=== PATIENT | male | born 1955 | race Caucasian/White ===

== ENCOUNTER 2022-09-19 17:32 | Observation (INO) | payer OTHER, BC ==
[2022-09-19] MEDS ORDERED: LORazepam 1 MG TABLET PO PRN (20:47)
[2022-09-19] MEDS ORDERED: morphine SULFATE 10 MG/5 ML UNIT-DOSE CUP PO PRN (20:47)
[2022-09-19] MEDS: QUEtiapine FUMARATE 50 MG TABLET PO SCH (23:11)
[2022-09-19] MEDS: LACTULOSE 20 GM/30 ML UDC (FOR ORAL USE ONLY) PO SCH (23:11)
[2022-09-20 01:02] VITALS: BMI 17.2
[2022-09-20] MEDS: LACTULOSE 20 GM/30 ML UDC (FOR ORAL USE ONLY) PO SCH ×2 (05:51→15:14)
[2022-09-20] MEDS: QUEtiapine FUMARATE 50 MG TABLET PO SCH (09:44)
[2022-09-20 15:11] VITALS: BP 99/52; PULSE 47; RESP 18; TEMP 98.3
== END 2022-09-20 15:57 | disposition home health service (06) ==
LOC: JER 17:32 → JERBED 19:56 → J8W 20:44
PROVIDERS: ADMIT Internal Medicine; ATTEND Internal Medicine
PROC: 02PY33Z Removal of Infusion Device from Great Vessel, Percutaneous Approach (ICD-10-PCS; principal; 2022-09-19)
PROC: 02HV33Z Insertion of Infusion Device into Superior Vena Cava, Percutaneous Approach (ICD-10-PCS; 2022-09-19)
PROC: B518ZZA Fluoroscopy of Superior Vena Cava, Guidance (ICD-10-PCS; 2022-09-19)
DX: T82.524A Displacement of infusion catheter, initial encounter (principal); C61 Malignant neoplasm of prostate; C79.31 Secondary malignant neoplasm of brain; C79.51 Secondary malignant neoplasm of bone; F41.8 Other specified anxiety disorders; G47.33 Obstructive sleep apnea (adult) (pediatric); I10 Essential (primary) hypertension; Y82.8 Other medical devices associated with adverse incidents
CPT/HCPCS: 36569; 77001-TC-FY; 99285-25; C1751; C9803-CS; G0378; U0003; U0005

== ENCOUNTER 2022-11-08 16:57 | Observation (INO) | payer OTHER, BC ==
[2022-11-08] MEDS ORDERED: HYDROmorphone HCl 2 MG/ML VIAL IVPUSH ONE ×3 (17:46→21:07)
[2022-11-08] MEDS ORDERED: HYDROmorphone HCl 2 MG/ML VIAL ONE ×3 (18:02→21:07)
[2022-11-08 18:21] LABS: BASO % 0.7 % (0-2.0); EOS % 8.5 % (0-4.5); HEMATOCRIT 28.8 % (35.4-49); HEMOGLOBIN 9.7 GM/dL (11.7-16.9); MCH 29.3 pg (25.7-33.7); MCHC 33.6 g/dl (32.0-35.9); MEAN CELL VOLUME 87.2 fl (80-96); MEAN PLT VOLUME 7.1 fl (7.5-11.1); NEUT % 67.8 % (42.8-82.8); PLATELET COUNT 123 10^3/uL (134-434); RDW 16.9 % (11.9-15.9); WHITE BLOOD COUNT 4.1 K/mm3 (4.0-10.0)
[2022-11-08 18:28] LABS: INR 1.14 (0.83-1.09); PROTHROMBIN TIME (PATIENT) 13.2 SEC (9.7-13.0)
[2022-11-08 18:30] LABS: ACTIVATED PTT 38.2 SECONDS (25.2-36.5)
[2022-11-08 18:43] LABS: CALCIUM 8.2 mg/dL (8.5-10.1)
[2022-11-08 18:44] LABS: ALBUMIN 3.4 g/dl (3.4-5.0); BLOOD UREA NITROGEN 10.5 mg/dL (7-18); MAGNESIUM 2.5 mg/dL (1.8-2.4)
[2022-11-08 18:48] LABS: BILIRUBIN,TOTAL 0.3 mg/dL (0.2-1); CREATININE 0.9 mg/dL (0.55-1.3)
[2022-11-08] MEDS ORDERED: LORazepam 1 MG TABLET PO PRN (22:51)
[2022-11-08] MEDS ORDERED: HYDROmorphone *PCA* 10MG/50ML DISP.SYRIN PCA SCH (23:00)
[2022-11-09 01:08] VITALS: BMI 20.5
[2022-11-09] MEDS: HYDROmorphone HCl 2 MG/ML VIAL IVPB PRN ×4 (03:24→12:04)
[2022-11-09] MEDS ORDERED: SENNOSIDES 8.6MG TABLET (FP) PO SCH (10:00)
[2022-11-09] MEDS ORDERED: QUEtiapine FUMARATE 100 MG TABLET (FP) PO SCH (10:00)
[2022-11-09] MEDS ORDERED: PANTOPRAZOLE 40 MG TABLET PO SCH (10:00)
[2022-11-09 11:46] VITALS: BP 133/70; PULSE 51; RESP 20; TEMP 98.6
== END 2022-11-09 16:25 | disposition home or self-care (01) ==
LOC: JER 16:57 → JERBED 17:41 → INTOOBSV 17:41 → J6S 11-09 00:06
PROVIDERS: ADMIT Internal Medicine; ATTEND Internal Medicine
PROC: 3E033NZ Introduction of Analgesics, Hypnotics, Sedatives into Peripheral Vein, Percutaneous Approach (ICD-10-PCS; principal; 2022-11-08)
PROC: 05PY33Z Removal of Infusion Device from Upper Vein, Percutaneous Approach (ICD-10-PCS; 2022-11-08)
PROC: 05H633Z Insertion of Infusion Device into Left Subclavian Vein, Percutaneous Approach (ICD-10-PCS; 2022-11-08)
DX: T82.524A Displacement of infusion catheter, initial encounter (principal); C61 Malignant neoplasm of prostate; I10 Essential (primary) hypertension; F41.8 Other specified anxiety disorders; Z87.891 Personal history of nicotine dependence; F12.10 Cannabis abuse, uncomplicated; Y99.8 Other external cause status
CPT/HCPCS: 0241U-QW; 36415; 36584; 37799; 77001-TC-FY; 80053; 83735; 85025; 85610; 85730; 86850; 86900; 86901; 93005; 93010; 96374; 96376; 99285-25; C1751; G0378

== ENCOUNTER → 2023-04-29 | Day surgery (SDC) | payer OTHER, BC | END | disposition home or self-care (01) | LOC: JRADIR 11:50 | PROVIDERS: ATTEND Internal Medicine | PROC: 02HV33Z Insertion of Infusion Device into Superior Vena Cava, Percutaneous Approach (ICD-10-PCS; principal; 2023-04-29) | PROC: B518ZZA Fluoroscopy of Superior Vena Cava, Guidance (ICD-10-PCS; 2023-04-29) | PROC: 02PYX3Z Removal of Infusion Device from Great Vessel, External Approach (ICD-10-PCS; 2023-04-29) | DX: T82.594A Other mechanical complication of infusion catheter, initial encounter (principal); Y82.8 Other medical devices associated with adverse incidents; Y92.9 Unspecified place or not applicable | CPT/HCPCS: 36584; 77001-TC-FY; C1751 ==